=== PATIENT | male | born 1990 | race Caucasian/White ===

== ENCOUNTER 2017-08-28 08:44 | Emergency (ER) | payer OTHER ==
[2017-08-28] MEDS ORDERED: NORMAL SALINE 500 ML IV ONE (09:52)
[2017-08-28 10:11] LABS: ABSOLUTE MONOCYTES (AUTO) 0.4 10^3/uL (0.1-1.4); ABSOLUTE NEUT (AUTO) 1.6 10^3/uL (1.7-8.2); BASOPHILS % (AUTO) 0.5 % (0-2); EOSINOPHILS % (AUTO) 1.1 % (0-6); HEMATOCRIT 40.6 % (37.9-51.0); HEMOGLOBIN 14.3 g/dL (13.5-17.0); LYMPHOCYTES % (AUTO) 49.5 % (13-45); MEAN CORPUSCULAR HEMOGLOBIN 31.2 pg (27.0-33.4); MEAN CORPUSCULAR HGB CONC 35.1 g/dL (32.0-36.0); MEAN CORPUSCULAR VOLUME 89 fl (80-97); MONOCYTES % (AUTO) 9.8 % (3-13); PLATELET COUNT 190 10^3/uL (150-450); RED BLOOD COUNT 4.57 10^6/uL (4.35-5.55); RED CELL DISTRIBUTION WIDTH 14.9 % (11.5-14.0); SEGMENTED NEUTROPHILS % (AUTO) 39.1 % (42-78); TOTAL CELLS COUNTED % (AUTO) 100 %; WHITE BLOOD COUNT 4.1 10^3/uL (4.0-10.5)
[2017-08-28 10:39] LABS: ACETAMINOPHEN < 10 ug/mL (10-30); ALANINE AMINOTRANSFERASE 249 U/L (21-72); ALBUMIN 4.1 g/dL (3.5-5.0); ALCOHOL < 10 mg/dL (NONE DETECTED); ALKALINE PHOSPHATASE 55 U/L (38-126); ANION GAP 5 (5-19); ASPARTATE AMINO TRANSFERASE 121 U/L (17-59); BILIRUBIN,TOTAL 1.8 mg/dL (0.2-1.3); BLOOD UREA NITROGEN 15 mg/dL (7-20); CALCIUM 9.7 mg/dL (8.4-10.2); CARBON DIOXIDE 33 mmol/L (22-30); CHLORIDE 103 mmol/L (98-107); GLUCOSE 64 mg/dL (75-110); POTASSIUM 4.6 mmol/L (3.6-5.0); SALICYLATE < 1.0 mg/dL (2.0-20.0); TOTAL PROTEIN 6.5 g/dL (6.3-8.2)
[2017-08-28 10:51] LABS: APPEARANCE,URINE CLEAR; BILIRUBIN,URINE NEGATIVE (NEGATIVE); COLOR,URINE COLORLESS; GLUCOSE, URINE NEGATIVE (NEGATIVE)
[2017-08-28 10:52] LABS: KETONES,URINE NEGATIVE (NEGATIVE); LEUKOCYTE ESTERASE,URINE NEGATIVE (NEGATIVE); NITRITE,URINE NEGATIVE (NEGATIVE); PROTEIN,URINE NEGATIVE (NEGATIVE); URINE SPECIFIC GRAVITY 1.023; UROBILINOGEN,URINE NEGATIVE mg/dL (<2.0)
--- NOTE | 2017-08-28 10:53 | RADIOLOGY REPORT (SQ) ---
EXAM DESCRIPTION: CTA NECK COMPLETED DATE/TIME: 08/28/2017 10:38 am REASON FOR STUDY: hanging with sheet eval COMPARISON: None. TECHNIQUE: Axial dynamic scanning technique with dynamic contrast enhancement through the extra-aircraft cleaning supervisor nial carotid and vertebral arteries. Multiplanar reconstruction. 3-D MIPS and Volume-rendered imag es acquired at the workstation and saved to PACS. Images are reviewed in soft tissue, bone, lung w indows. All CT scanners at this facility use dose modulation, iterative reconstruction, and/or weight based d osing when appropriate to reduce radiation dose to as low as reasonably achievable (ALARA). [facility]: Dose Right [facility]: CareDose [facility]: Dose Right [facility]: Teradose 4D [facility]: Cognitive Networks CONTRAST TYPE AND DOSE: contrast/concentration: Isovue 370.00 mg/ml; Total Contrast Delivered: 70.0 ml; Total Saline Delivered: 75.0 ml RENAL FUNCTION: None required. The patient is less than 50 years old. LIMITATIONS: None. FINDINGS: AORTIC ARCH: Normal three-vessel origin. Bilateral subclavian arteries are patent. No d issection. RIGHT CAROTIDS: Patent common, internal and external carotid arteries without suggestion of significa nt stenosis or irregular plaque. No dissection. RIGHT VERTEBRAL: Patent. No dissection. LEFT CAROTIDS: Patent common, internal and external carotid arteries without suggestion of significan t stenosis or irregular plaque. No dissection. LEFT VERTEBRAL: Patent. No dissection. OTHER: The hyoid bone appears to be intact. OTHER: 3-D reconstructions confirm findings. IMPRESSION: NORMAL CTA OF THE EXTRA-CRANIAL CAROTID AND VERTEBRAL ARTERIES. COMMENT: Quality ID #[id number]: Measurements of distal internal carotid diameter were used as the denomina tor for stenosis measurement. TECHNICAL DOCUMENTATION: JOB ID: [id number] Quality ID # [id number]: Final reports with documentation of one or more dose reduction techniques (e.g., Au tomated exposure control, adjustment of the mA and/or kV according to patient size, use of iterative reconstruction technique) 2010 [employer] All Rights Reserved Reading location - IP/workstation name: [email or web address]
[2017-08-28 11:03] LABS: URINE AMPHETAMINES SCREEN NEGATIVE; URINE BARBITURATES SCREEN NEGATIVE; URINE BENZODIAZEPINES SCREEN NEGATIVE; URINE COCAINE SCREEN NEGATIVE; URINE MARIJUANA (THC) SCREEN NEGATIVE; URINE METHADONE SCREEN NEGATIVE; URINE PHENCYCLIDINE SCREEN NEGATIVE
[2017-08-28] MEDS ORDERED: BENZTROPINE MESYLATE 1 MG TABLET PO ONE (12:58)
[2017-08-28] MEDS ORDERED: RISPERIDONE 0.5 MG TAB.RAPDIS PO ONE (12:58)
--- NOTE | 2017-08-28 13:06 | ER Document Report ---
ED General - General Chief Complaint: suicidal attempt Stated Complaint: PSYCH EVALUATION Time Seen by Provider: 08/28/17 09:38 TRAVEL OUTSIDE OF THE [place] IN LAST 30 DAYS: No - HPI Patient complains to provider of: Suicide attempt by hanging Notes: Patient is currently in the custody of the [facility] gel was found this morning hanging from a bed sheet according to the patient his feet were off the ground and to be brought down. Also at bedside was a witness to this and therefore has not been evaluated HPI. Patient currently denies any pain denies any neck pain denies any changes in voice. Patient states he was suicidal because of this finding out he has hepatitis C. Patient states was at times the past with inpatient admissions to psychiatric hospitals. Patient currently no obvious distress - Related Data Allergies/Adverse Reactions: No Known Allergies Allergy (Unverified 08/28/17 08:46) Past Medical History - Social History Smoking Status: Former Smoker Chew tobacco use (# tins/day): No Frequency of alcohol use: None Drug Abuse: None Family History: Reviewed & Not Pertinent Patient has suicidal ideation: Yes Patient has homicidal ideation: No Renal/ Medical History: Denies: Hx Peritoneal Dialysis Review of Systems - Review of Systems Constitutional: Other - Suicidal ideation with attempted hanging patient self EENT: No symptoms reported Cardiovascular: No symptoms reported Respiratory: No symptoms reported Gastrointestinal: No symptoms reported Genitourinary: No symptoms reported Male Genitourinary: No symptoms reported Musculoskeletal: No symptoms reported Skin: No symptoms reported Hematologic/Lymphatic: No symptoms reported Neurological/Psychological: No symptoms reported Physical Exam - Vital signs Vitals: Temp Pulse Resp BP Pulse Ox 98.1 F 64 20 113/72 100 08/28/17 08:47 08/28/17 08:47 08/28/17 08:47 08/28/17 08:47 08/28/17 08:47 Interpretation: Normal - General General appearance: Appears well, Alert - HEENT Head: Normocephalic, Atraumatic Eyes: Normal Conjunctiva: Normal Cornea: Normal Pupils: PERRL Neck: Other - Slight redness to the right lateral neck. No midline neck tenderness noted tenderness being muscles. no carotid bruits auscultated - Respiratory Respiratory status: No respiratory distress Chest status: Nontender Breath sounds: Normal Chest palpation: Normal - Cardiovascular Rhythm: Regular Heart sounds: Normal auscultation Murmur: No - Abdominal Inspection: Normal Distension: No distension Bowel sounds: Normal Tenderness: Nontender Organomegaly: No organomegaly - Back Back: Normal, Nontender - Extremities General upper extremity: Normal inspection, Nontender, Normal color, Normal ROM , Normal temperature General lower extremity: Normal inspection, Nontender, Normal color, Normal ROM , Normal temperature, Normal weight bearing. No: Duane's sign - Neurological Neuro grossly intact: Yes Cognition: Normal Orientation: AAOx4 Ernul Coma Scale Eye Opening: Spontaneous Ernul Coma Scale Verbal: Oriented Sherlyn Coma Scale Motor: Obeys Commands Ernul Coma Scale Total: 15 Speech: Normal Motor strength normal: LUE, RUE, LLE, RLE Sensory: Normal - Psychological Associated symptoms: Other - Suicidal - Skin Skin Temperature: Warm Skin Moisture: Dry Skin Color: Normal Course - Re-evaluation Re-evalutation: 08/28/17 15:22 Patient coming in for evaluation after hanging attempt in the [facility]. Patient states that he was having a normal amount time. No loss consciousness. Patient does have a slight abrasion to the right side of his neck. Patient refused evaluation at the [facility]. CAT scan here is otherwise negative. Patient was able tolerate a meal without difficulty. Patient was also evaluated by our psychiatric team recommended medications Depakote risperidone and Cogentin. Patient was given his first dose here prescribed is to continue with gel. Recommend to officers bedside patient be on suicide watch and possible transfer there is unable to perform this at the local [facility]. Otherwise patient discharged - Vital Signs Vital signs: Temp Pulse Resp BP Pulse Ox 99.1 F 55 L 20 111/67 100 08/28/17 13:18 08/28/17 13:18 08/28/17 13:18 08/28/17 13:18 08/28/17 13:18 - Laboratory Result Diagrams: 08/28/17 09:50 08/28/17 09:50 Laboratory results interpreted by me: 08/28/17 08/28/17 09:50 09:50 RDW 14.9 H Seg Neutrophils % 39.1 L Lymphocytes % 49.5 H Absolute Neutrophils 1.6 L Carbon Dioxide 33 H Glucose 64 L Total Bilirubin 1.8 H AST 121 H ALT 249 H Salicylates < 1.0 L Acetaminophen < 10 L Critical Care Note - Critical Care Note Total time excluding time spent on procedures (mins): 35 Comments: Multiple evaluations for patient with a possible hanging. Discharge - Discharge Clinical Impression: Suicide attempt by hanging Qualifiers: Encounter type: initial encounter Qualified Code(s): T71.162A - Asphyxiation due to hanging, intentional self-harm, initial encounter Condition: Good Disposition: HOME, SELF-CARE Instructions: Depression ([facility]), Neck Injury (Cervical Strain) ([facility]), Suicidal Ideation ([facility]) Additional Instructions: Your CAT scan today does not show any damage to the bones in your neck or to the vessels of your neck. Patient may experience pain for the next few days he can take Tylenol Motrin for pain control. He had been evaluated by our psychiatric team at this time we will start medications of Depakote risperidone and Cogentin. Please take medications as prescribed. Patient should be placed on suicide precautions while in the [facility] facility. As recommended by our psychiatric team of the local [facility] facility cannot continue to monitor the patient possibility [facility]. At this time patient can be discharged Prescriptions: Benztropine Mesylate 1 mg PO DAILY #14 tablet Divalproex Sodium [Depakote] 500 mg PO BID #28 tablet. Risperidone [Risperdal] 0.5 mg PO BID #28 tablet
[2017-08-28 13:19] VITALS: BP 111/67
--- NOTE | 2017-08-28 13:45 | EKG REPORT ---
SEVERITY:- OTHERWISE NORMAL ECG - SINUS RHYTHM LEFT AXIS DEVIATION : Confirmed by: Chris Tracy MD 28-Aug-2017 13:43:37
== END 2017-08-28 13:20 | disposition home or self-care (01) ==
LOC: ER 08:44
DX: T71.162A Asphyxiation due to hanging, intentional self-harm, initial encounter (principal); X83.8XXA Intentional self-harm by other specified means, initial encounter; Y93.9 Activity, unspecified; Z87.891 Personal history of nicotine dependence; B19.20 Unspecified viral hepatitis C without hepatic coma
CPT/HCPCS: 93005; 99291; 96360; 36415; 80307 ×4; 85025; 80053; 81001; 70498; 93010; J7040; J3490

== ENCOUNTER → 2017-09-24 | Outpatient (CLI) | payer OTHER ==
[2017-09-24 09:32] LABS: HEMATOCRIT 40.6 % (37.9-51.0); MEAN CORPUSCULAR HEMOGLOBIN 31.2 pg (27.0-33.4); MEAN CORPUSCULAR HGB CONC 34.4 g/dL (32.0-36.0); MEAN CORPUSCULAR VOLUME 91 fl (80-97); PLATELET COUNT 156 10^3/uL (150-450); RED BLOOD COUNT 4.47 10^6/uL (4.35-5.55); RED CELL DISTRIBUTION WIDTH 14.9 % (11.5-14.0); WHITE BLOOD COUNT 4.4 10^3/uL (4.0-10.5)
[2017-09-24 09:44] LABS: ALANINE AMINOTRANSFERASE 135 U/L (21-72); ALBUMIN 3.6 g/dL (3.5-5.0); ALKALINE PHOSPHATASE 74 U/L (38-126); ANION GAP 8 (5-19); ASPARTATE AMINO TRANSFERASE 60 U/L (17-59); BILIRUBIN,DIRECT 0.3 mg/dL (0.0-0.4); BILIRUBIN,TOTAL 0.5 mg/dL (0.2-1.3); BLOOD UREA NITROGEN 11 mg/dL (7-20); CALCIUM 9.6 mg/dL (8.4-10.2); CARBON DIOXIDE 35 mmol/L (22-30); CHLORIDE 105 mmol/L (98-107); GLUCOSE 102 mg/dL (75-110); LIPASE 48.9 U/L (23-300); POTASSIUM 4.8 mmol/L (3.6-5.0); SODIUM 148.2 mmol/L (137-145); TOTAL PROTEIN 6.4 g/dL (6.3-8.2)
== END ==
LOC: LAB 08:49
PROVIDERS: ATTEND Internal Medicine Pulmonary Disease
DX: R10.9 Unspecified abdominal pain (principal)
CPT/HCPCS: 36415; 80053; 83690; 85027

== ENCOUNTER 2020-03-10 21:01 | Emergency (ER) ==
[2020-03-10 21:07] VITALS: BP 126/80
== END 2020-03-10 21:10 | disposition left against medical advice (07) ==
LOC: ER 21:01
DX: Z53.21 Procedure and treatment not carried out due to patient leaving prior to being seen by health care provider (principal); M54.5 Low back pain